=== PATIENT | male | born 1965 | race Two or more races ===

== ENCOUNTER 2024-08-22 17:40 | Emergency (ER) | payer MEDICARE, MEDICAID, SELFPAY ==
--- NOTE | 2024-08-22 17:44 | XR_ITS ---
Examination: AP chest single view Technique one AP portable upright chest single view Exam date and time: August 22, 2024 1806 hrs. Indications: Patient choking on food today. Findings: Atelectasis in both lungs, no lobar pneumonia Mild prominence left ventricle No pulmonary edema Moderate osteopenia Impression: Atelectasis in both lungs No lobar pneumonia
[2024-08-22 17:50] VITALS: BP 122/81; PULSE 102; PULSE 98; RESP 17; TEMP 36.7; O2SAT 93; O2SAT 96; BMI 32.5
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
[2024-08-22 18:11] LABS: Basophils # (Auto) 0.1 Thou/mm3 (0.0-0.2); Basophils % (Auto) 1 % (0-2.5); Eosinophils # (Auto) 0.2 Thou/mm3 (0.0-0.5); Eosinophils % (Auto) 2 % (0-10); Hematocrit 40.3 % (41.0-53.0); Hemoglobin 13.4 g/dL (13.5-16.0); Immature Granulocytes % (Auto) 1 % (0-0); Lymphocytes % (Auto) 33 % (10-50); Mean Corpuscular HGB Conc 33.3 g/dl (31.0-37.0); Mean Corpuscular Hemoglobin 28.5 pg (25.0-35.0); Mean Corpuscular Volume 86 fL (80-100); Monocytes # (Auto) 0.4 Thou/mm3 (0.0-0.8); Monocytes % (Auto) 5 % (0-12); Neutrophils # (Auto) 5.4 Thou/mm3 (1.8-7.7); Neutrophils % (Auto) 59 % (37-80); Nucleated Red Blood Cell % 0 /100 WBC (0); Platelet Count 197 Thou/mm3 (140-440); RDW Standard Deviation 49.2 fL (35.1-43.9); Red Blood Count 4.71 Miln/mm3 (4.50-5.90); White Blood Count 9.1 Thou/mm3 (3.8-10.6)
[2024-08-22 18:29] LABS: Alanine Aminotransferase 22 U/L (10-49); Albumin, Serum 3.6 gm/dL (3.4-4.8); Albumin/Globulin Ratio 1.4 (1.2-2.2); Alkaline Phosphatase 90 U/L (46-116); Anion Gap 14 (7-16); Aspartate Amino Transferase 23 U/L (0-34); BUN/Creatinine Ratio 16 Ratio (12-20); Bilirubin,Total 0.4 mg/dL (0.3-1.2); Blood Urea Nitrogen 23 mg/dL (9-23); Calcium 8.4 mg/dL (8.3-10.6); Calcium (Corrected) 8.7 mg/dL (8.5-10.1); Carbon Dioxide 20.5 mMol/L (20.0-31.0); Chloride 107 mMol/L (98-107); Creatinine (Component) 1.4 mg/dL (0.6-1.3); Estimated Creatinine Clearance 64.5 mL/min (>60); Globulin 2.6 gm/dL (2.3-3.5); Glucose 156 mg/dL (74-106); Osmolality,Calculated 287 (275-295); Potassium 3.6 mMol/L (3.4-5.1); Sodium 141 mMol/L (136-145); Total Protein 6.2 gm/dL (5.7-8.2); eGFR 57 See Note
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
[2024-08-22 20:25] VITALS: BP 134/91; PULSE 97; RESP 17; TEMP 36.8; O2SAT 96
--- NOTE | 2024-08-22 20:39 | XR_ITS ---
Examination: AP chest single view Technique one AP portable upright chest single view Exam date and time: August 22, 2024 2047 hrs., Compared to film at 1806 hrs. Indications: Coughing congestion today. Findings: Slightly more prominent bibasilar atelectasis versus aspiration pneumonia, clinical correlation advised Normal heart size Impression: Slightly more prominent bibasilar atelectasis versus aspiration pneumonia, clinical correlation advised
[2024-08-22 21:34] VITALS: BP 144/92; PULSE 99; RESP 16; O2SAT 97
[2024-08-22] MEDS: LEVOFLOXACIN 250 MG TABLET 500 MG PO (21:35)
[2024-08-22 22:04] VITALS: RESP 18
== END 2024-08-22 22:05 | disposition home or self-care (01) ==
PROVIDERS: Registered Nurse General Practice; Emergency Provider Emergency Medicine; PCP Physician Assistant
DX: J69.0 Pneumonitis due to inhalation of food and vomit (principal)
CPT/HCPCS: 36415; 71045; 80053; 85025; 99283; A9270

== ENCOUNTER 2024-08-29 21:30 | Emergency (ER) | payer MEDICARE, MEDICAID, SELFPAY ==
[2024-08-29 21:37] VITALS: BP 91/63; PULSE 96; RESP 19; TEMP 36.4; O2SAT 100; BMI 30.2
[2024-08-29 21:48] VITALS: BP 91/63; PULSE 96; RESP 19; TEMP 36.4; O2SAT 100; BMI 30.2
--- NOTE | 2024-08-29 22:54 | XR_ITS ---
Examination: Shoulder,left, 3 views Technique: Shoulder AP internal rotation, AP external rotation, Y view shoulder, 3 views Exam date and time :August 29, 2024 1134 hrs. Indications: Patient fell today with injury to the shoulder, shoulder pain. Findings: Acute comminuted mildly impacted fracture humeral neck No shoulder dislocation No significant joint separation Impression: Acute comminuted impacted fracture humeral neck
--- NOTE | 2024-08-29 22:54 | XR_ITS ---
Examination: Humerus 2 views left Technique: Humerus, AP lateral 2 views Date and time of exam: August 29, 2024 11:38 PM Indications: Patient fell today with injury to the arm, arm pain. Findings: Acute impacted mildly angulated comminuted fracture humeral neck Shaft of the humerus intact Impression: Acute fracture humeral neck
[2024-08-30] MEDS: IBUPROFEN TAB 600 MG TABLET PO (00:43)
--- NOTE | 2024-08-30 00:47 | PD.EDFALL ---
ED Fall Injury RME/HPI General Chief Complaint: Fall Stated Complaint: FALL Time Seen by Provider: 08/29/24 22:36 Arrival date/time: 08/29/24 21:30 59 YEAR OLD MALE PRESENTS TO THE ED WITH HIS NIECE, WITH A COMPLAINT OF LEFT UPPER ARM/SHOULDER PAIN AFTER A GROUND LEVEL FALL. HE DENIES ANY NECK, BACK, OR HEAD PAIN, ELBOW OR WRIST PAIN. HE DENIES ANY NUMBNESS OR TINGLING TO HIS LEFT HAND. Mode of arrival: wheelchair Limitations: language barrier (APHASIC) Related Data Home Medications ?Medication ?Instructions ?Recorded ?Confirmed empagliflozin 25 mg tablet 25 mg PO DAILY 10/21/20 07/25/21 (Jardiance) insulin glargine 100 unit/mL (3 25 unit subcut DAILY 10/21/20 07/25/21 mL) subcutaneous pen (Basaglar KwikPen U-100 Insulin) sitagliptin phosphate 50 1 tab PO BID 10/21/20 07/25/21 mg-metformin 1,000 mg tablet (Janumet) lisinopril 10 mg tablet 10 mg PO DAILY 11/25/20 11/25/20 vitamin B complex-vitamin C-folic 1 tab PO QDAY 11/25/20 07/25/21 acid 0.8 mg tablet (Devika-Jcak) aspirin 81 mg tablet,delayed 325 mg PO QDAY 07/25/21 07/25/21 release Previous Rx's ?Medication ?Instructions ?Recorded atorvastatin 40 mg tablet 40 mg PO QHSPRN #30 tabs 11/29/20 clopidogrel 75 mg tablet (Plavix) 75 mg PO QDAY #30 tabs 11/29/20 levofloxacin 750 mg tablet 750 mg PO Q24H #6 tabs 08/22/24 acetaminophen 650 mg 650 mg PO Q8H PRN pain #30 tabs 08/30/24 tablet,extended release Allergies Allergy/AdvReac Type Severity Reaction Status Date / Time No Known Allergies Allergy Verified 07/25/21 00:23 Past Medical History Past Medical History NEUROLOGIC: Positive Neurological Disorders and Cerebrovascular Accident; Negative Dementia, Seizures, Epilepsy, Guillain-[place] Syndrome, Paralysis, Peripheral Neuropathy or Traumatic Brain Injury CARDIAC: Positive Hypertension; Negative Cardiac Disorders, Coronary Artery Disease, Hypercholesterolemia, Congestive Heart Failure, Congenital Heart Disease, Valvular Heart Disease, Edema, Cellulitis or Hypotension RESPIRATORY: Positive Cough and Smoking; Negative Chronic Obstructive Pulmonary Disease (COPD) or Asthma GASTROINTESTINAL: Negative Gastrointestinal Disorders, Hepatitis, Gall Bladder Disease, Gastrointestinal Bleed, Esophageal Varices, Gastroesophageal Reflux Disease or Obesity GENITOURINARY: Negative Genitourinary Disorders or Renal Disease REPRODUCTIVE: Negative Fibroids MUSCULOSKELETAL: Positive Arthritis and Fractures ENT: Negative Cataracts, Blind or Deafness ENDOCRINE: Positive Endocrine Disorders and Diabetes Mellitus Type 2; Negative Diabetes Mellitus Type 1 HEMATOLOGIC: Negative Blood Disorders or Sickle Cell Disease OTHER HISTORY: Positive Hospitalization and Measles; Negative Autoimmune Disease, Blood Transfusions, Anesthesia Reactions, Organ Transplant, MRSA, Chicken Pox, Rubella ([place] Measles), Clostridium Difficile or Cancer Family History FAMILY HISTORY: Positive Family Cardiac Disorders, Family Cancer and Family Surgery; Negative Family Psychiatric Problems, Family Respiratory Disorders, Family Gastrointestinal Problems or Family Anesthesia Reaction Surgical History SURGICAL: Negative Cardiac Surgery, Pacemaker, Endocrine Surgery, Ear Surgery, Abdominal Surgery, Nephrectomy, Joint Replacement, Neurologic Surgery, Vasectomy or Organ Transplant Social History SMOKING STATUS: Never smoker SECOND HAND EXPOSURE: No SUBSTANCE USE: does not use ED Exam General Limitations: Present language barrier (APHASIC) Course Orders Category Date Time Status sling [Splint / Immobilizer] STAT Care 08/30/24 00:39 Active XR humerus LT MIN 2V Stat Exams 08/29/24 22:54 Completed XR shoulder LT min 2V Stat Exams 08/29/24 22:54 Completed Ibuprofen Tab [Motrin Tab] Med 08/29/24 22:54 Discontinued 600 mg PO X1 ONE Vital Signs Vital signs: Vital Signs Temperature 97.6 F 08/29/24 21:37 Pulse Rate 96 08/29/24 21:37 Respiratory Rate 19 08/29/24 21:37 Blood Pressure 91/63 08/29/24 21:37 Pulse Oximetry (%) 100 08/29/24 21:37 Oxygen Delivery Method Room Air 08/29/24 21:37 Fall Medications / Prescriptions Medication administrations:: Medication Administration History Discontinued Medications Ibuprofen (Ibuprofen Tab 600 Mg Tablet) 600 mg PO X1 ONE Stop: 08/29/24 22:55 Last Admin: 08/30/24 00:43 Dose: 600 mg Documented By: HAKEEM Comments: Unable to scan Discharge Plan Plan Patient Disposition: HOME (Self Care) Disposition Comment: STABLE AND IMPROVED Prescriptions/Referrals Prescriptions/Med Rec: New acetaminophen 650 mg tablet extended release 650 mg PO Q8H PRN (Reason: pain) Qty: 30 0RF No Action Basaglar KwikPen U-100 Insulin 100 unit/mL (3 mL) insulin pen 25 unit SUBCUT DAILY Patient Comments: INJECT 10 UNITS SUBCUTANEOUSLY EVERY DAY FOR DIABETES Jardiance 25 mg tablet 25 mg PO DAILY Patient Comments: TAKE ONE TABLET BY MOUTH EVERY DAY FOR DIABETES Janumet 50-1,000 mg tablet 1 tab PO BID Patient Comments: TAKE ONE TABLET BY MOUTH TWICE DAILY with a meal lisinopril 10 mg tablet 10 mg PO DAILY Devika-Jack 0.8 mg Tablet 1 tab PO QDAY atorvastatin 40 mg tablet 40 mg PO QHSPRN Qty: 30 0RF clopidogrel [Plavix] 75 mg Tablet 75 mg PO QDAY Qty: 30 0RF aspirin 81 mg tablet,delayed release (DR/EC) 325 mg PO QDAY levofloxacin 750 mg tablet 750 mg PO Q24H Qty: 6 0RF Referrals: Jose Ramon Fay PA-C [Primary Care Provider] - In 1 week Problem List Clinical Impression: Fracture, humerus, head Patient/Caregiver Discharge Instructions Education Materials: Understanding a Humerus Fracture, ED Fracture, Upper Extremity Additional Instructions: Wear the sling at all times while you are up and about. Take the prescribed Tylenol as directed. Do not take ibuprofen or Naprosyn due to an interaction with Plavix. Follow-up with your primary care physician in 24 to 48 hours. Return to the ED for any new or worsening symptoms. Print Language: Italian Stand Alone Forms: Sandra Award Info., Patient Portal Info Letter NARAYAN/CROW Supervising Physician SUMMER Supervising Physician: Dr Luke
[2024-08-30 01:10] VITALS: PULSE 72; RESP 20; TEMP 36.6; O2SAT 98
== END 2024-08-30 01:12 | disposition home or self-care (01) ==
PROVIDERS: Emergency Provider Emergency Medicine; PCP Physician Assistant
DX: S42.215A Unspecified nondisplaced fracture of surgical neck of left humerus, initial encounter for closed fracture (principal); W18.30XA Fall on same level, unspecified, initial encounter
CPT/HCPCS: 73030; 73060; 99283; A9270

== ENCOUNTER → 2025-02-21 | Outpatient (CLI) | payer MEDICARE, MEDICAID, SELFPAY ==
[2025-02-21 10:43] LABS: Albumin, Serum 4.0 gm/dL (3.4-4.8); Anion Gap 9 (7-16); BUN/Creatinine Ratio 12 Ratio (12-20); Blood Urea Nitrogen 14 mg/dL (9-23); Calcium 8.3 mg/dL (8.3-10.6); Calcium (Corrected) 8.3 mg/dL (8.5-10.1); Carbon Dioxide 26.5 mMol/L (20.0-31.0); Chloride 109 mMol/L (98-107); Creatinine (Component) 1.2 mg/dL (0.6-1.3); Glucose 62 mg/dL (74-106); Osmolality,Calculated 285 (275-295); Phosphorous 3.7 mg/dL (2.4-5.1); Potassium 3.8 mMol/L (3.4-5.1); Sodium 144 mMol/L (136-145); eGFR > 60 See Note
== END | disposition home or self-care (01) ==
LOC: COPL 09:24
PROVIDERS: PCP Physician Assistant; Referring Provider Psychiatry & Neurology Neurology; Visit Provider Psychiatry & Neurology Neurology
DX: Z01.89 Encounter for other specified special examinations (principal)
CPT/HCPCS: 36415; 80069